=== PATIENT | male | born 1965 | race African-American/Black ===

== ENCOUNTER 2025-01-13 07:34 | Emergency (ER) | payer MEDICAID ==
[~2025-01-13] VITALS: Ht 177.8 cm; Wt 85.0 kg
[2025-01-13 07:36] VITALS: O2SAT 98
[2025-01-13] MEDS: IBUPROFEN 600MG TABLET PO ONE (08:42)
[2025-01-13 08:43] VITALS: BP 140/86; PULSE 89; RESP 16; TEMP 36.8; O2SAT 98
== END 2025-01-13 08:45 | disposition home or self-care (01) ==
LOC: ER 07:46
DX: G89.29 Other chronic pain (principal); M54.59 Other low back pain; I11.0 Hypertensive heart disease with heart failure; I50.9 Heart failure, unspecified; M54.32 Sciatica, left side; M54.31 Sciatica, right side
CPT/HCPCS: 99283